=== PATIENT | male | born 1945 | race Caucasian/White ===

== ENCOUNTER → 2020-10-05 | Outpatient (CLI) | payer MEDICARE, OTHER ==
--- NOTE | 2020-10-06 09:41 | CT ---
EXAM DESCRIPTION: Abdomen/Pelvis w/wo Contrast CT Urogram: Computed Tomography. CLINICAL HISTORY: MICROHEMATURIA COMPARISON: None. TECHNIQUE: Spiral, axial 5 mm scans through the abdomen and pelvis without contrast. Arterial phase axial scans at 3 mm intervals through the abdomen and pelvis. Coronal 2.5 mm reconstructions. Venous phase axial scans at 3 mm interval through the abdomen. Coronal 2.5 mm Reconstructions. Delayed prone axial scans at 3 mm intervals through the abdomen and pelvis. Coronal 2.5 mm reconstructions. 3D volume rendering image. Total Exam DLP: 3277 mGy-cm. This exam was performed according to our departmental CT dose-optimization program which includes automated exposure control, adjustment of the mA and/or kV according to patient size and/or use of iterative reconstruction technique; to reduce radiation dose to as low as reasonably achievable (ALARA). FINDINGS: Kidneys: Multiple small foci of radiodense stones right renal upper and lower collecting system approximately 2 mm diameter. Largest stone just below the mid level of the right kidney approximately 4 mm greatest diameter. No hydronephrosis. No abnormal enhancement. Small cyst abutting the upper collecting system approximately 1 cm in diameter. Thinning of the lateral mid-left renal cortex. With normal enhancement, no stones. Minimal mass effect on the spleen flattening the lateral contour of the kidney. No hydronephrosis. No perirenal fluid or fatty stranding bilaterally. Ureters are normal caliber bilaterally with no dilation or obstruction. Pelvic organs: Marked enlargement of the prostate gland which measures 7.5 x 6.1 cm transverse and 7.5 cm craniocaudal, volume of 178.4 mL. Significant mass effect on the base of the urinary bladder with inferior posterior calcifications. Also mass effect on the seminal vesicles. Bladder wall thickening. Unusual starfish-like stone which is gravity dependent to the right of midline in the urinary bladder measuring 2.1 x 1.7 cm in the transverse plane and 1.9 cm coronal plane. No other stones in the urinary bladder. No free fluid. Moderate amount of fecal material and gas in the rectum. No enlarged lymph nodes or other soft tissue masses. Ectasia versus small aneurysm in the proximal right common iliac artery with diameter 14.4 mm. Minimal atherosclerotic changes in the iliac arteries and common femoral arteries with no aneurysm or significant narrowing. Upper abdominal organs and mesentery: Minimal enlargement of the liver with right lobe 20 cm on the long axis. No focal lesions. No ascites. No free air in the peritoneum. Small sliding hiatal hernia. Negative findings in the spleen, adrenal glands, gallbladder, common bile duct. Fatty pancreas. Small splenules. Bowel: Scattered gas throughout the small bowel with no distended segments. Mild distention of the proximal colon with fecal matter. Normal caliber of the appendix. No pericolonic inflammatory changes or complications. Diverticula distal descending colon and sigmoid with mild to moderate redundancy of the sigmoid colon. Aorta, spine, and bony pelvis: Minimal atherosclerotic calcification with distal colon caliber 2.3 cm. Dextroscoliosis of the lumbar spine with spondylosis most advanced at L2-L3, L3-L4, and L5-S1. Bilateral hip joint space narrowing superior-lateral aspect with subchondral cysts in the acetabula bilaterally, more on the left. No acute bony changes. Hypertrophic changes in the pubic symphysis. Mild arthrosis bilateral SI joints.. Abdominal pelvic meade and soft tissues, lung and pleural bases: No significant abnormalities in the lung bases with minimal thickening. Coronary artery stents and calcifications with cardiomegaly. Abdominal and pelvic anterior wall and posterior abdominal and pelvic soft tissues are unremarkable. IMPRESSION: 1. Multiple small stones in the right kidney with largest less than 4 mm diameter. Small cyst abutting the upper collecting system. No hydronephrosis, no hydroureter, no perirenal fluid. Minimal cortical thinning lateral left kidney. Otherwise unremarkable. Negative findings in the left ureter. 2. Marked enlargement of the prostate gland with significant mass effect on the base of the urinary bladder abutting the ureterovesical junctions. Also mass effect on the seminal vesicles. No free fluid in the pelvis. 3. Bladder wall thickening with 2.1 cm starfish-like gravity dependent stone to the right of midline. 4. 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 Atherosclerotic changes in the aorta and the iliac arteries and bilateral common femoral arteries. 5. Hepatomegaly but no focal lesions. No ascites. No mesenteric inflammatory changes or adenopathy. Small sliding hiatal hernia. Fatty pancreas. Diverticulosis distal colon with no complications. 6. 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 Arthrosis bilateral hip joints, SI joints, and pubic symphysis. 7. Coronary artery calcifications and possible stents. Electronically signed by: Eran Heller MD 10/06/2020 9:39 AM [employer]
== END ==
LOC: CT 08:21
PROVIDERS: ATTEND Urology
DX: Z01.812 Encounter for preprocedural laboratory examination (principal); N21.0 Calculus in bladder; N20.0 Calculus of kidney; N28.1 Cyst of kidney, acquired; N40.0 Benign prostatic hyperplasia without lower urinary tract symptoms; N32.89 Other specified disorders of bladder; K57.30 Diverticulosis of large intestine without perforation or abscess without bleeding; R16.0 Hepatomegaly, not elsewhere classified; K44.9 Diaphragmatic hernia without obstruction or gangrene; K90.3 Pancreatic steatorrhea; I72.3 Aneurysm of iliac artery; I70.0 Atherosclerosis of aorta; I25.84 Coronary atherosclerosis due to calcified coronary lesion; I70.8 Atherosclerosis of other arteries; I70.203 Unspecified atherosclerosis of native arteries of extremities, bilateral legs; M16.0 Bilateral primary osteoarthritis of hip; M47.896 Other spondylosis, lumbar region; M41.9 Scoliosis, unspecified; M47.898 Other spondylosis, sacral and sacrococcygeal region

== ENCOUNTER → 2020-10-29 | Outpatient (CLI) | payer MEDICARE, OTHER | LOC: YCFC.O 12:07 | PROVIDERS: ATTEND Nurse Practitioner | DX: Z11.52 Encounter for screening for COVID-19 (principal) ==

== ENCOUNTER → 2020-11-05 | Outpatient (CLI) | payer MEDICARE, OTHER ==
--- NOTE | 2020-11-05 14:00 | RAD ---
Study: Frontal and Lateral Radiographs of the Chest. Indication: KIDNEY STONES Comparison: None Impression: Mild cardiomegaly. Thoracic aorta is tortuous. Mild bilateral basilar atelectasis, otherwise lungs clear. Degenerative changes of the spine noted. Electronically signed by: Addison Cote MD 11/05/2020 1:58 PM [employer]
== END ==
LOC: RAD 12:19
PROVIDERS: ATTEND Urology
DX: I51.7 Cardiomegaly (principal); Q25.46 Tortuous aortic arch; J98.11 Atelectasis; N20.0 Calculus of kidney; Z11.52 Encounter for screening for COVID-19; M47.9 Spondylosis, unspecified

== ENCOUNTER 2020-11-11 14:36 | Emergency (ER) | payer MEDICARE, OTHER ==
[2020-11-11] MEDS ORDERED: LIDOCAINE 2 % GEL 5 ML TUBE TOP ONE (14:45)
--- NOTE | 2020-11-11 15:04 | ED.PDOC ---
History of Present Illness - General Stated Complaint: unable to urinate Time Seen by Provider: 11/11/20 14:37 Source: patient Exam Limitations: no limitations - History of Present Illness Initial Comments: The patient is a 75-year-old male presented emergency room secondary to inability to void. The patient actually took out his Carlson catheter this morning on instructions from his urologist. The patient apparently had a procedure 24 to 48 hours ago to remove stones from the bladder and from the ureters. The patient however has been unable to void since he woke up this morning and took the catheter out. He is in very significant discomfort. He does need the placement of another catheter. Timing/Duration: 4-6 hours Severity: moderate Improving Factors: nothing Worsening Factors: nothing Associated Symptoms: denies symptoms Review of Systems - Review of Systems Constitutional: States: no symptoms reported EENTM: States: no symptoms reported Respiratory: States: no symptoms reported Cardiology: States: no symptoms reported Gastrointestinal/Abdominal: States: abdominal pain Genitourinary: States: see HPI Musculoskeletal: States: no symptoms reported Skin: States: no symptoms reported Neurological: States: no symptoms reported Endocrine: States: no symptoms reported All other Systems: No Change from Baseline Physical Exam - Physical Exam General Appearance: Alert, Obvious distress Eye Exam: bilateral normal Ears, Nose, Throat: hearing grossly normal Respiratory: no respiratory distress, no accessory muscle use Cardiovascular/Chest: normal peripheral pulses Peripheral Pulses: radial,right: 2+, radial,left: 2+ Gastrointestinal/Abdominal: soft, other - Palpable bladder Rectal Exam: deferred Extremity: normal range of motion, normal capillary refill Neurologic: sales representative health insurance II-XII nml as tested, alert, normal mood/affect, oriented x 3 Skin Exam: normal color Progress - Progress Progress: 11/11/20 15:04 Patient presents with inability to void after removing his catheter this morning. Another catheter was placed with good urine return. Patient is much more comfortable. The patient is to remove the catheter again on Sunday. ER warnings are given. Keep follow-up with primary care doctor. leyla [email or web address] [phone] Departure - Departure Clinical Impression: Postoperative urinary retention Disposition: Discharge to Home or Self Care Condition: Fair Diet: regular diet Activity: increase activity as tolerated Referrals: Raya Stewart FNP [Primary Care Provider] - 1-2 Weeks Additional Instructions: Patient presents with inability to void after removing his catheter nancy pavon. Another catheter was placed with good urine return. Patient is much more comfortable. The patient is to remove the catheter again on Sunday. ER warnings are given. Keep follow-up with primary care doctor.
[2020-11-11 15:06] VITALS: TEMP 97.6
[2020-11-11 15:08] VITALS: O2SAT 100
[2020-11-11 15:21] VITALS: BP 140/74
== END 2020-11-11 15:20 | disposition home or self-care (01) ==
LOC: ER 14:36
DX: N99.89 Other postprocedural complications and disorders of genitourinary system (principal); R33.8 Other retention of urine; Z87.442 Personal history of urinary calculi

== ENCOUNTER 2020-11-16 13:22 | Emergency (ER) | payer MEDICARE, OTHER ==
--- NOTE | 2020-11-16 14:33 | ED.PDOC ---
History of Present Illness - General Chief Complaint: Problem Stated Complaint: urinary retention request catheter insertion Time Seen by Provider: 11/16/20 13:40 Source: patient, RN notes reviewed, Vital Signs reviewed, family Exam Limitations: no limitations - History of Present Illness Initial Comments: The patient is a 75 year old male who presents to the ED with lower abdominal pain/fullness secondary to acute urinary retention. He recently had a urologic procedure and was discharged with a reyes catheter which he removed at home after 24 hours. He was unable to void so he returned to the Emergency Department with pain and retention, another reyes catheter was placed. He had this second catheter removed yesterday but states that he has been unable to void since that time. He has follow up with his urologist in two days. He contacted his urologist who recommended ED visit for catheter placement and will remain in place until clinic visit. no fevers or vomiting. No other complaints at this time. Allergies/Adverse Reactions: Allergies NO KNOWN ALLERGY Allergy (Verified 11/16/20 13:55) Home Medications: Ambulatory Orders NK 11/16/20 Review of Systems - Review of Systems Constitutional: Denies: chills, fever EENTM: States: no symptoms reported Respiratory: States: no symptoms reported Cardiology: States: no symptoms reported Gastrointestinal/Abdominal: States: abdominal pain Genitourinary: States: other - Urinary retention Musculoskeletal: States: no symptoms reported Skin: States: no symptoms reported Neurological: States: no symptoms reported Endocrine: States: no symptoms reported Hematologic/Lymphatic: States: no symptoms reported All other Systems: Reviewed and Negative Past Medical History (General) - Patient Medical History Hx Seizures: No Hx Stroke: No Hx Dementia: No Hx Asthma: No Hx of COPD: No Hx Cardiac Disorders: Yes Hx Congestive Heart Failure: No Hx Pacemaker: No Hx Hypertension: No Hx Thyroid Disease: Yes Hx Diabetes: No Hx Gastroesophageal Reflux: No Hx Renal Disease: No Hx Cancer: No Hx of HIV: No Hx Hepatitis C: No Hx MRSA: No Surgical History: no surgical history - Vaccination History Hx Tetanus, Diphtheria Vaccination: Yes Hx Influenza Vaccination: Yes Hx Pneumococcal Vaccination: Yes - Social History Hx Tobacco Use: No Hx Alcohol Use: No Hx Substance Use: No Hx Substance Use Treatment: No Hx Depression: No Family Medical History - Family History Mother Living Status: Physical Exam - Physical Exam General Appearance: Anxious, Obvious distress, Restless Ears, Nose, Throat: hearing grossly normal Respiratory: no respiratory distress Cardiovascular/Chest: regular rate, rhythm Gastrointestinal/Abdominal: distended, tenderness - suprapubic Extremity: normal range of motion Neurologic: no motor/sensory deficits, alert, normal mood/affect, oriented x 3 Progress - Progress Progress: 11/16/20 16:02 Patient in the ED for acute urinary retention. Reyes catheter placed with complete resolution of symptoms, around 800cc drained. Urine initially bloody but cleared, no significant clotting. There is no post-obstructive nephropathy. Will continue outpatient symptomatic management, indwelling reyes until urology follow up in two days. Catheter care reviewed. - Results/Orders Results/Orders: Laboratory Results - last 24 hr 11/16/20 13:55 Sodium 137 Potassium 4.1 Chloride 101 Carbon Dioxide 25 Anion Gap 15.1 BUN 19 H Creatinine 1.10 BUN/Creatinine Ratio 17.3 Random Glucose 111 H Serum Osmolality 276.8 Calcium 9.3 Departure - Departure Clinical Impression: Urinary retention Time of Disposition: 14:33 Disposition: Discharge to Home or Self Care Condition: Excellent Departure Forms: ED Discharge - Pt. Copy, Patient Portal Self Enrollment Instructions: How to Care for Your Reyes Catheter, Male Diet: resume usual diet Activity: increase activity as tolerated Referrals: Raya Stewart FNP [Primary Care Provider] - 1-2 Weeks Home Medications: Ambulatory Orders NK 11/16/20 Additional Instructions: Follow up with your urologist as scheduled in two days.
[2020-11-16 14:51] VITALS: BP 132/78; TEMP 97.8; O2SAT 96
== END 2020-11-16 14:38 | disposition home or self-care (01) ==
LOC: ER 13:22
DX: R33.9 Retention of urine, unspecified (principal); I51.9 Heart disease, unspecified; E07.9 Disorder of thyroid, unspecified; Z98.890 Other specified postprocedural states